=== PATIENT | female | born 1935 | race Caucasian/White ===

== ENCOUNTER → 2016-11-13 | Outpatient (CLI) | payer OTHER, MEDICARE ==
--- NOTE | 2016-11-14 11:42 | US ---
Interventional consultation Venous duplex Doppler sonography of superficial and deep veins of both legs Chief Complaint: Nonhealing infected ulcer of lower left leg, near the medial malleolus. History: 81-year-old woman with chronic varicose veins and swelling of distal left leg, with ulcerati on near the medial malleolus present for years. This site was treated by surgery and never quite heal ed. She has been seen in Wound Care here for 3 weeks after going to [facility]ound [facility] in [place] for 2 year s. She has been using compression stockings of mild to moderate strength for 2 years. She takes hydro codone/APAP 5/325 daily for pain. Physical examination demonstrates mildly purulent ulcer near the left medial malleolus, with a few mi ld varicose veins of the left calf and reddish-purplish discoloration of the left calf. Left greater than right swelling. Technique: Color Doppler and pulsed Doppler interrogation of superficial and deep veins of both legs, using calf compressions, Valsalva, and weight-shifting maneuvers to augment flow. Imaging was done w ith the patient supine and recumbent. Findings: Left leg: At the saphenofemoral junction, the left great saphenous vein measures up to 7 mm diameter. 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 Reflux involves the entir e left great saphenous vein. The left great saphenous vein tapers down to 5 mm diameter in the mid th igh, where it becomes epifascial. In the calf, the left great saphenous vein is rather tortuous and c onnects to superficial varicose tributaries. Average size in the calf is 5 mm diameter. The left shor t saphenous vein is small, 2 to 3 mm diameter, free of reflux in most of the leg. A posterolateral br anch of the far inferior aspect of the short saphenous vein does have some reflux, but this appears i nsignificant. Right leg: Right common femoral vein and popliteal vein are patent, with trace reflux of the common f emoral vein. The right great saphenous vein measures up to 5 mm diameter near the saphenofemoral junc tion, tapering down to 4 mm diameter in the mid thigh and 3 mm diameter in the knee and calf, without reflux. The right short saphenous vein is small, 2 to 3 mm diameter, without reflux. Impression: Reflux of left superficial femoral vein likely has some significance with regards to the nonhealing ulcer near the left medial malleolus. This vein has a tortuous course in the calf. Interventional consultation: Persistent ulceration despite compression therapy and wound care for kayy rly 2 1/2 years makes intervention medically necessary. I recommend endovenous laser ablation of left great saphenous vein in its entirety. I discussed this procedure in detail with the patient and her daughter. We reviewed risks and benefits of treatment. I gave her my four page handout regarding supe rficial venous reflux disease and interventional treatment. 40 minutes consultation, 35 minutes [id number] time. - - - - - - - - - - - - - - - - - - - - - - - - - - - - - (PQRS measures: Current medications were listed in the medical record, including all known prescripti ons, [id number] medications, herbal medications, and nutritional supplements. Tobacco use: None . Prophylactic antibiotic:Unnecessary. VTE prophylaxis:Unnecessary.)
== END ==
LOC: FIMAGING 06:45
PROVIDERS: ATTEND Surgery
DX: L97.821 Non-pressure chronic ulcer of other part of left lower leg limited to breakdown of skin (principal); I87.2 Venous insufficiency (chronic) (peripheral); I83.002 Varicose veins of unspecified lower extremity with ulcer of calf

== ENCOUNTER 2016-12-05 10:37 | Day surgery (SDC) | payer OTHER, MEDICARE ==
[2016-12-05] MEDS ORDERED: ONDANSETRON 4 MG/2 ML VIAL IVP ONE (12:34)
[2016-12-05] MEDS ORDERED: NS 1,000 ML IV ONE (12:34)
[2016-12-05] MEDS ORDERED: ceFAZolin 2 GM/DEXTROSE 100 ML IV ONE (12:34)
[2016-12-05] MEDS ORDERED: LIDO/EPI 1% **for epidural** 30 ML SDV ONE (12:45)
[2016-12-05] MEDS ORDERED: fentaNYL 100 MCG/2 ML INJ ONE (13:04)
[2016-12-05] MEDS ORDERED: MIDAZOLAM 2 MG/2 ML VIAL ONE (13:04)
[2016-12-05] MEDS ORDERED: IBUPROFEN 200 MG TAB PO ONE (14:47)
[2016-12-05] MEDS ORDERED: NS 1,000 ML IV SCH (14:47)
[2016-12-05] MEDS ORDERED: HYDROCODONE/APAP 5/325 TAB PO PRN (14:47)
[2016-12-05] MEDS ORDERED: ONDANSETRON 4 MG/2 ML VIAL IVP PRN (14:47)
[2016-12-05] MEDS ORDERED: ONDANSETRON DISINTEGRATING 4 MG TAB PO PRN (14:47)
== END 2016-12-05 15:00 | disposition home or self-care (01) ==
LOC: FIMAGING 10:37
PROVIDERS: ATTEND Radiology Diagnostic Radiology
DX: I83.023 Varicose veins of left lower extremity with ulcer of ankle (principal); L97.321 Non-pressure chronic ulcer of left ankle limited to breakdown of skin; Z86.74 Personal history of sudden cardiac arrest; Z87.891 Personal history of nicotine dependence
CPT/HCPCS: J0690; J2250; J3010

== ENCOUNTER → 2017-01-24 | Outpatient (CLI) | payer OTHER, MEDICARE | LOC: FIMAGING 07:26 | PROVIDERS: ATTEND Radiology Diagnostic Radiology | DX: Z09 Encounter for follow-up examination after completed treatment for conditions other than malignant neoplasm (principal); Z98.890 Other specified postprocedural states ==